=== PATIENT | male | born 1980 | race Caucasian/White ===

== ENCOUNTER 2017-09-16 13:02 | Emergency (ER) | payer SELFPAY ==
[~2017-09-16] VITALS: Ht 182.8 cm; Wt 91.6 kg
[2017-09-16] MEDS ORDERED: NEXIUM40 MG PO (14:37)
[2017-09-16] MEDS ORDERED: AUGMENTIN 875875 MG PO (14:37)
== END 2017-09-16 14:41 | disposition home or self-care (01) ==
LOC: ED 13:02
DX: J02.0 Streptococcal pharyngitis (principal); K21.9 Gastro-esophageal reflux disease without esophagitis; F17.200 Nicotine dependence, unspecified, uncomplicated; Z98.890 Other specified postprocedural states